=== PATIENT | male | born 1965 | race Caucasian/White ===

== ENCOUNTER 2019-04-28 21:06 | Emergency (ER) | payer MEDICAID ==
[~2019-04-28] VITALS: Ht 177.8 cm; Wt 136.1 kg
[2019-04-28 21:06] VITALS: BP_SYST 0
--- NOTE | 2019-04-28 21:06 | NUR ---
Pt to bed 1. BIB SQ 64. ER physician notified. In full arrest, CPR in progress. Manual ventilation being assisted by paramedics. IV started in field. Epi and Sodium Bicarb given in field. Code blue called. Please see code blue sheet.
--- NOTE | 2019-04-28 21:06 | NUR ---
2053: CPR Continued 2053: Dr. Spencer ordered CPR to be stopped for LT chest tube placement. 2054: RT chest tube placed by Dr. Spencer and CPR continued
--- NOTE | 2019-04-28 21:06 | NUR ---
2103: Dr. Spencer announced time of at 21:03
--- NOTE | 2019-04-28 21:06 | NUR ---
Placed in room 1. Placed on monitor and storage bin tender, blood pressure machine and pulse oximeter.
--- NOTE | 2019-04-28 21:06 | NUR ---
20:50: RT lateral dissection done by Dr. Spencer. Positive air and pressure release noted by . Addendum: 04/28/19 at [email or web address] Spencer verbalized to hold CPR for proceedure
--- NOTE | 2019-04-28 21:06 | NUR ---
2052: Lt lateral chest dissection performed by Dr. Spencer. Pressure released observed by Dr. Spencer.
--- NOTE | 2019-04-28 21:06 | NUR ---
2043: Ant CASTRO ACLS 54 year old from [facility] hx of TBI, Respiratory Failure, HTN for Cardiac Arrest. Pt is a resident of [facility] undergoing monthly trach replacement, during proceedure trach became lodged. EMS reports no breath sounds and no pulse upon arrival at 20:25. EMS started IV access and administered 2 rounds of Epinephrine and 1 Sodium Bicarb with no response. Upon arrival patient is Asystole no palpable pulses at this time. CPR continued 20:45. Addendum: 04/28/19 at 2151 by [email or web address] EMS arrived bagging. EMS Squad 64 states patient is originally DNR, family has been contacted and advised they want everything done.
--- NOTE | 2019-04-28 21:55 | NUR ---
[facility] has been Notified of
--- NOTE | 2019-04-28 22:07 | NUR ---
[facility] [employer] has been notified. Spoke with Kitty and patient is eligible for donation. Reference #[id number].
--- NOTE | 2019-04-28 22:26 | NUR ---
ER Dr. Spencer speaking with pt's family in triage room.
--- NOTE | 2019-04-28 23:00 | NUR ---
Pt's family was interviewed for Mortuary information. States we are waiting for the family member who makes all the legal decisions.
--- NOTE | 2019-04-29 00:18 | NUR ---
Pt is requesting [facility] to be contacted for arrangements. [phone]
--- NOTE | 2019-04-29 00:24 | NUR ---
[facility] and [facility] staff will picking belt operator the patient in approxmately 1-1.5 hours.
--- NOTE | 2019-04-29 01:45 | NUR ---
Mortuary staff at bedside.
--- NOTE | 2019-04-29 01:48 | NUR ---
[facility] .
== END 2019-04-29 01:45 | disposition expired ==
LOC: SED 21:06
DX: I46.9 Cardiac arrest, cause unspecified (principal)
CPT/HCPCS: 99291